=== PATIENT | female | born 1955 | race Caucasian/White ===

== ENCOUNTER → 2016-07-25 | Outpatient (CLI) | payer OTHER ==
[~2016-07-25] MED LIST: CELEXA 20 MG TA20 M1 PO; FLAGYL500 MG PO; GABAPENTIN 100100 MG PO; LIDODERM 5%1 PATCH TRANSDERM; MOBIC15 MG PO; NEURONTIN300 MG PO; NORCO 5-325 TA1 EACH PO; PERCOCET 5-3251 EACH PO; PHENADOZ25 MG RC; PHENERGAN 25 MG25 M1 PO; PHENERGAN50 MG RC; PROTONIX40 M1 PO; VALACYCLOVIR1000 MG PO; ZOFRAN ODT4 MG PO; ZOSTRIX56.6 GM TOP; ZPAK PO
== END ==
LOC: RAD 13:53
DX: Z12.31 Encounter for screening mammogram for malignant neoplasm of breast (principal)

== ENCOUNTER 2017-01-14 03:30 | Inpatient (IN) | payer OTHER ==
[~2017-01-14] VITALS: Ht 162.6 cm; Wt 41.7 kg
[2017-01-14] VITALS (7 sets, daily range): BP systolic 95–143; BP diastolic 58–79
[2017-01-14] MEDS ORDERED: CYMBALTA30 MG PO (03:45)
[2017-01-14 03:57] LABS: ABSOLUTE NEUTROPHILS 10.6 thou/uL (1.4-8.2); BASOPHILS 0.3 % (0.0-2.0); EOSINOPHILS 0.5 % (0.0-3.0); HEMATOCRIT 45.6 % (37.0-47.0); HEMOGLOBIN 15.5 gm/dL (12.0-15.0); MCH 34.5 pg (26.0-34.0); MCHC 34.1 g/dL (28.0-37.0); MCV 101.3 fL (80.0-100.0); PLATELET COUNT 255 thou/uL (150-400); POLYS 80.2 % (36.0-66.0); RDW 13.3 % (10.5-14.5); WBC 13.2 thou/uL (4.0-11.0)
[2017-01-14 04:06] LABS: ANION GAP 7 mmol/L (7-16); BUN 13 mg/dL (7-18); CALCIUM 9.6 mg/dL (8.5-10.1); CHLORIDE 105 mmol/L (98-107); CO2 28 mmol/L (21-32); GLUCOSE 159 mg/dL (74-106); POTASSIUM 4.7 mmol/L (3.5-5.1); SODIUM 140 mmol/L (136-145)
[2017-01-14 04:09] LABS: MANUAL DIFF NO
[2017-01-14 04:11] LABS: ALBUMIN 3.8 g/dL (3.4-5.0); ALKALINE PHOSPHATASE 81 U/L (46-116); DIRECT BILIRUBIN < 0.1 mg/dL (<0.1-0.3); SGOT 23 U/L (15-37); SGPT 21 U/L (30-65); TOTAL BILIRUBIN 0.3 mg/dL (<0.1-1.0); TOTAL PROTEIN 6.9 g/dL (6.4-8.2)
[2017-01-14 04:16] LABS: PROTIME 10.5 Seconds (9.3-11.4)
[2017-01-15 03:45] VITALS: BP 12/70
[2017-01-15 06:29] LABS: HEMATOCRIT 40.7 % (37.0-47.0); MCH 35.3 pg (26.0-34.0); MCHC 34.3 g/dL (28.0-37.0); MCV 102.8 fL (80.0-100.0); RBC 3.96 mil/uL (4.20-5.00); WBC 8.5 thou/uL (4.0-11.0)
[2017-01-15 06:37] LABS: CALCIUM 8.4 mg/dL (8.5-10.1); CREATININE 0.8 mg/dL (0.6-1.0)
[2017-01-15 06:41] LABS: POTASSIUM 4.6 mmol/L (3.5-5.1)
[2017-01-15 07:16] VITALS: BP 130/74
[2017-01-15] MEDS ORDERED: HYDROCODONE-AP1 EAC6 PO (10:27)
[2017-01-15] MEDS ORDERED: ZOFRAN ODT4 MG DISSOLVE (10:27)
[2017-01-15] MEDS ORDERED: CIPRO500 MG PO (10:29)
[2017-01-15] MEDS ORDERED: FLAGYL500 MG PO (10:29)
[2017-01-15 13:40] VITALS: BP 130/74
== END 2017-01-15 14:04 | disposition home or self-care (01) | DRG 392 ==
LOC: ER 03:30 → EROBS 05:51 → 4E 05:51
PROVIDERS: Emergency Medicine; Family Medicine
DX: K52.9 Noninfective gastroenteritis and colitis, unspecified (principal); K92.1 Melena; F17.210 Nicotine dependence, cigarettes, uncomplicated; F32.9 Major depressive disorder, single episode, unspecified; D72.829 Elevated white blood cell count, unspecified; Z23 Encounter for immunization; Z85.89 Personal history of malignant neoplasm of other organs and systems
CPT/HCPCS: 10084

== ENCOUNTER → 2017-08-10 | Outpatient (CLI) | payer OTHER ==
[~2017-08-10] MED LIST changes: +CIPRO500 MG PO; +CYMBALTA30 MG PO; +HYDROCODONE-AP1 EAC6 PO; +ZOFRAN ODT4 MG DISSOLVE
== END ==
LOC: RAD 00:50
DX: Z12.31 Encounter for screening mammogram for malignant neoplasm of breast (principal)

== ENCOUNTER → 2017-08-25 | Outpatient (CLI) | payer OTHER | LOC: RAD 00:12 | DX: N63.41 Unspecified lump in right breast, subareolar (principal); N64.89 Other specified disorders of breast ==

== ENCOUNTER 2017-12-28 18:47 | Emergency (ER) | payer OTHER ==
[~2017-12-28] VITALS: Ht 165.1 cm; Wt 44.5 kg
[2017-12-28 19:51] LABS: ABSOLUTE NEUTROPHILS 3.2 thou/uL (1.4-8.2); EOSINOPHILS 2.3 % (0.0-3.0); HEMATOCRIT 44.5 % (37.0-47.0); HEMOGLOBIN 15.8 gm/dL (12.0-15.0); MCH 35.8 pg (26.0-34.0); MCHC 35.6 g/dL (28.0-37.0); MCV 100.6 fL (80.0-100.0); MONOCYTES 6.1 % (1.0-8.0); PLATELET COUNT 235 thou/uL (150-400); POLYS 45.6 % (36.0-66.0); RBC 4.43 mil/uL (4.20-5.00)
[2017-12-28 19:58] LABS: CALCIUM 9.5 mg/dL (8.5-10.1); CREATININE 0.8 mg/dL (0.6-1.0); POTASSIUM 3.2 mmol/L (3.5-5.1)
[2017-12-28 20:04] LABS: ALBUMIN 3.5 g/dL (3.4-5.0); TOTAL BILIRUBIN 0.4 mg/dL (<0.1-1.0); TOTAL PROTEIN 6.9 g/dL (6.4-8.2)
[2017-12-28 21:11] LABS: URINE BILIRUBIN NEGATIVE (Negative); URINE BLOOD TRACE (Negative); URINE CLARITY CLEAR; URINE COLOR YELLOW; URINE GLUCOSE-RANDOM* NEGATIVE (Negative); URINE KETONES NEGATIVE (Negative); URINE LEUKOCYTES 1+ (Negative); URINE NITRITE NEGATIVE (Negative); URINE PROTEIN (DIPSTICK) NEGATIVE (Negative); URINE SPECIFIC GRAVITY <= 1.005 (1.005-1.035); URINE UROBILINOGEN 0.2 E.U./dl (0.2-1.0)
[2017-12-28 21:14] LABS: BACTERIA 1-9 Few /HPF (None Seen); CASTS None Seen /LPF (None Seen); CRYSTALS None Seen /LPF (None Seen); SQUAMOUS 0-3 Few /LPF (0-3); URINE RBC None Seen /HPF (0-2); URINE WBC 0-5 Rare /HPF (0-5)
[2017-12-28] MEDS ORDERED: PEPCID20 MG PO (21:36)
[2017-12-28] MEDS ORDERED: PHENERGAN 25 MG25 M1 PO (21:36)
== END 2017-12-28 22:33 | disposition home or self-care (01) ==
LOC: ER 18:47
PROVIDERS: Physician Assistant
DX: R10.13 Epigastric pain (principal); F10.10 Alcohol abuse, uncomplicated; R11.2 Nausea with vomiting, unspecified; F17.210 Nicotine dependence, cigarettes, uncomplicated; Z85.41 Personal history of malignant neoplasm of cervix uteri

== ENCOUNTER 2019-04-22 12:33 | Emergency (ER) | payer BC ==
[~2019-04-22] VITALS: Ht 162.6 cm; Wt 42.2 kg
--- NOTE | ~2019-04-22 | EKG ---
[facility] [place] [address] ELECTROCARDIOGRAM REPORT Name: ALEXANDR NEWTON Room #: 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
[~2019-04-22 12:33] MED LIST changes: +PEPCID20 MG PO
[2019-04-22] MEDS ORDERED: SERTRALINE HCL25 MG PO (12:41)
[2019-04-22] MEDS ORDERED: ALENDRONATE SOD70 MG PO (12:42)
[2019-04-22 13:30] LABS: ABSOLUTE NEUTROPHILS 5.5 thou/uL (1.4-8.2); BASOPHILS 0.9 % (0.0-2.0); EOSINOPHILS 0.5 % (0.0-3.0); HEMATOCRIT 43.3 % (37.0-47.0); HEMOGLOBIN 14.8 gm/dL (12.0-15.0); LYMPHOCYTES 24.7 % (24.0-44.0); MCH 34.6 pg (26.0-34.0); MCHC 34.3 g/dL (28.0-37.0); MCV 101.1 fL (80.0-100.0); MONOCYTES 5.4 % (1.0-8.0); PLATELET COUNT 265 thou/uL (150-400); POLYS 68.5 % (36.0-66.0); RBC 4.28 mil/uL (4.20-5.00); RDW 13.1 % (10.5-14.5); WBC 8.1 thou/uL (4.0-11.0)
[2019-04-22 13:32] LABS: CALCIUM 9.4 mg/dL (8.5-10.1); CREATININE 0.9 mg/dL (0.6-1.0); POTASSIUM 4.6 mmol/L (3.5-5.1)
[2019-04-22 13:38] LABS: MAGNESIUM 1.9 mg/dL (1.8-2.4)
[2019-04-22] MEDS ORDERED: MECLIZINE HCL25 MG PO (15:39)
[2019-04-22 16:11] VITALS: BP 138/75
== END 2019-04-22 16:12 | disposition home or self-care (01) ==
LOC: ER 12:33
PROVIDERS: Emergency Medicine
DX: R42 Dizziness and giddiness (principal); I95.1 Orthostatic hypotension; F17.210 Nicotine dependence, cigarettes, uncomplicated